=== PATIENT | female | born 2000 | race Caucasian/White ===

== ENCOUNTER → 2024-10-21 11:24 | Outpatient (REF) | payer OTHER, SELFPAY ==
[2024-10-21 18:55] LABS: Hepatitis B Surface Antibody Positive
[2024-10-23 17:40] LABS: Quantiferon Mitogen minus NIL 9.97 IU/mL; Quantiferon NIL 0.03 IU/mL; Quantiferon Plus TB1 minus NIL 0.02 IU/mL (<=0.34); Quantiferon Plus TB2 minus NIL 0.02 IU/mL (<=0.34); Quantiferon TB Gold Plus Negative (Negative)
== END ==
LOC: OHS 11:24
PROVIDERS: ATTENDING PHYSICIAN Nurse Practitioner Family
DX: Z23 Encounter for immunization (principal)
CPT/HCPCS: 36415; 86480; 86706

== ENCOUNTER 2025-01-17 04:29 | Emergency (ER) | payer SELFPAY ==
[2025-01-17 04:38] VITALS: BP 145/87
--- NOTE | 2025-01-17 05:45 | ED.GENMED ---
History of Present Illness
General
Chief Complaint: Eye Problems
Source: patient
Time Seen by Provider: 01/17/25 05:41
History of Present Illness
History of Present Illness:
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 She immediately flushed her eye. She was sent down by the warehouse examiner for evaluation. At this point I do
not feel that this is a significant exposure. The source patient was a 89-year-old male with no known communicable diseases. No known HIV or hepatitis. Patient declined postexposure prophylaxis. Patient has no complaints at this time
Past History
Past History
ED Past Medical History: Other (migraines)
ED Past Surgical History: None
Phy Exam
General Physical Exam
General Presentation: well appearing and no apparent distress
General Skin: warm and dry
General Habitus: normal
General Mental: alert
General Hydration: appears well hydrated
ENT Exam
ENT Exam: EOMI, pharynx normal, neck supple and normocephalic
Eye Exam
Eye Exam: PERRL, cornea clear and conjunctiva normal
Cardiovascular Exam
Cardiovascular Exam: regular rate/rhythm, no edema, no murmur and normal peripheral pulses
Pulmonary Exam
Pulmonary Exam: lungs clear, no respiratory distress, no rales, no crackles, no rhonchi, no stridor, no wheezing and no cough
Gastrointestinal Exam
Gastrointestinal Exam: normal bowel sounds, non tender, soft, no organomegaly, no pulsatile mass and non distended
Neurological Exam
Neurological Exam: alert, oriented x3, no motor deficits and speech normal
Musculoskeletal Exam
Musculoskeletal Exam: full ROM and no edema
Skin Exam
Skin Exam: normal color, warm/dry, no rash and no petechia
Psychiatric Exam
Psychiatric Exam: normal mood/affect
Course
Vital Signs
Initial and Last Documented VS:
Initial Vital Signs
Temp Pulse Resp BP Pulse Ox
98.6 F 81 16 145/87 99
01/17/25 04:38 01/17/25 04:38 01/17/25 04:38 01/17/25 04:38 01/17/25 04:38
Last Documented Vital Signs
Temp Pulse Resp BP Pulse Ox
98.6 F 81 16 145/87 99
01/17/25 04:38 01/17/25 04:38 01/17/25 04:38 01/17/25 04:38 01/17/25 05:47
*Pulse Oximetry
SaO2: 99
Oxygen Mode of Delivery: Room air
Patient hypoxic: no
*Critical Care Note
Total Time (30-74mins, 75-104mins- exclusive of procedures): Not Applicable
ED Attending Note
-
Portions of this chart may have been created with voice recognition software.� Occasional wrong word or��sound alike� substitutions may have occurred due to the inherent limitations of voice recognition software.
Discharge Plan
Departure
Patient Disposition: Home (Routine Discharge)
Date of Disposition: 01/17/25
Time of Disposition: 06:00
Patient with high blood pressure during this ER visit?: No
Discharge Problem:
Exposure to blood-borne pathogen
Referrals:
[facility] [Outside]
Beto Self MD [Family Provider, [facility]]
Stand Alone Forms: Bl/Fluid Consent/Declination, Blood Body/Fluid Exposure
Activity Restrictions/Additional Instructions:
Thank You for choosing [facility].
It was a pleasure meeting you and taking part in your care. We hope for your continued healing and wellness.
Please read discharge instructions in their entirety. However, they are for general education and may not describe your exact diagnosis at discharge. Information on your ER visit and medical conditions were discussed with you along with appropriate
follow up information...
If indicated, please take your medications as instructed and indicated on discharge paperwork.
Please schedule a follow up appointment as directed. Call to schedule an appointment
Please return to the emergency department with ANY change in, persisting, or worsening of symptoms. If any of your symptoms do not improve, or persist, or become more severe within 6-12 hours, please return to the emergency department for further
care.
Please return to the emergency department if you develop a headache, neck pain/stiffness, fever greater than 100.4F, chest pain, shortness of breath, persistent nausea, vomiting, slurred speech, difficulty walking, numbness/tingling, weakness, signs
of infection or any other symptoms that are worrisome to you.
If you have any questions or concerns please do not hesitate to call the Hospital at or E-mail me directly at [email or web address]
Interventions
Interventions:
*Risk Screen - Suicide Last Done: 01/17/25 04:38
*General Assessment Last Done: 01/17/25 04:38
*Neglect/Abuse Screening Last Done: 01/17/25 04:38
*ED- Fall Risk Assessment Last Done: 01/17/25 04:52
*ED COVID-19 Vaccine History Last Done: 01/17/25 04:52
Discharge Date and Time
Print Language: IRISH
== END 2025-01-17 06:14 | disposition home or self-care (01) ==
LOC: EMR 04:29
PROVIDERS: EMERGENCY PHYSICIAN Student in an Organized Health Care Education/Training Program; FAMILY PHYSICIAN Family Medicine
DX: Z77.21 Contact with and (suspected) exposure to potentially hazardous body fluids (principal); H57.9 Unspecified disorder of eye and adnexa; X58.XXXA Exposure to other specified factors, initial encounter; Y92.231 Patient bathroom in hospital as the place of occurrence of the external cause; Y99.0 Civilian activity done for income or pay
CPT/HCPCS: 99282